=== PATIENT | male | born 1970 ===

== ENCOUNTER → 2017-12-11 | Day surgery (SDC) | payer OTHER ==
[2017-11-26 14:59] VITALS: Ht 182.9 cm; Wt 94.5 kg
--- NOTE | 2017-12-10 08:44 | History and Physical: Surg Cnt ---
History & Physical Date Dec 10, 2017. Chief Complaint chronic sinusitis, nasal obstruction History of Present Illness The patient is a 47 year old male with complaints of recurrent and chronic sinusitis, septal deviation, snoring Additional History Hepatic Disease: No Endocrine Disorder: No Kidney Disease: No Hypertension: No Heart Disease: No Bleeding Tendencies: No Infectious Diseases: No Allergies Coded Allergies: Paroxetine (Verified Allergy, Mild, rash, 11/26/17) Home Medications Scheduled Duloxetine Hcl (Cymbalta), 20 MG PO QAM Fluticasone Propionate (Nasal) (Flonase Allergy Relief), 1-2 SPRAY NA BID Lamotrigine (Lamictal), 150 MG PO QAM Sertraline (Zoloft), 1 TAB PO QAM Physical Examination Skin: warm/dry, no rash Eyes: normal inspection, EOMI, sclerae normal ENT: normal ENT inspection, pharynx normal Head: normocephalic, atraumatic Neck: supple, no adenopathy, trachea midline Respiratory/Chest: lungs clear, normal breath sounds, no respiratory distress Cardiovascular: regular rate, rhythm, no edema, no murmur Abdomen / GI: normal bowel sounds, non tender Back: normal inspection Extremities: normal inspection, normal range of motion Neurologic/Psych: no motor/sensory deficits, alert, normal reflexes, oriented x 3 Diagnosis chronic sinusitis, septal deviation, snoring Plan of Treatment septoplasty, endoscopic sinus surgery, Celon turbinates and uvula
[~2017-12-11] VITALS: Ht 182.9 cm; Wt 94.5 kg
[~2017-12-11] MED LIST: ATROPINE SULFATE 0.1 MG/ML 5ML SYR IV PRN; BACITRACIN OINT 15 GM TUBE ONE; CEFAZOLIN 2000MG IV PUSH 15 ML IV SCH; DEXAMETHASONE SOD INJ 4 MG/ML VIAL ONE; DULO-24 PO; EpHEDrine SULFATE 50MG/5ML SYR ONE; EpHEDrine SULFATE INJ 50 MG/ML AMP IV PRN; EpINEphrine INJ 1MG/ML AMP 1 MG/ML AMP ONE; FENTANYL CITRATE INJ 50 MCG/1 ML 2 ML VIAL IV PRN; FENTANYL CITRATE INJ 50 MCG/1 ML 2 ML VIAL ONE; FLUT0.15; GELATIN SPONGE 12-7MM ONE; GLYCOPYRROLATE INJ 0.2 MG/ML VIAL ONE; LACTATED RINGER'S 1000ML 1,000 ML IV SCH; LAMO100T16 PO; LIDO 2%/EPINEPHRINE 1:100000 20 ML VIAL ONE; LIDOCAINE 4% MPF SOAK 5 ML = 1 DOSE ONE; LIDOCAINE HCL 2% 2 ML VIAL (20MG/ML) ONE; MIDAZOLAM HCL 1 MG/ML 2ML VIAL ONE; NEOSTIGMINE METHYLSULFATE 5 MG/5 ML SYR ONE; ONDANSETRON INJ 2 MG/ML 2 ML VIAL IV PRN; ONDANSETRON INJ 2 MG/ML 2 ML VIAL ONE; OXYC-57 PO; PROMETHAZINE HCL INJ 6.25 MG in SODIUM CHLORIDE 0.9% 50ML 50 ML IV PRN; PROPOFOL IV EMULSION 10 MG/ML 20 ML VIAL ONE; ROCURONIUM BROMIDE 10 MG/ML 5 ML VIAL ONE; SERT-234 PO; SODIUM CHLORIDE 0.9% 1000ML 1,000 ML IV SCH; TRAMADOL HCL 50 MG TAB PO PRN
--- NOTE | 2017-12-11 10:00 | History & Physical Bridge Note ---
H&P Re-Evaluation Bridge Note: I have examined the patient, reviewed the History & Physical and in the interval since the performance of the History & Physical I have noted the following changes of clinical significance: No changes noted
--- NOTE | 2017-12-11 12:22 | Discharge Instructions ---
Discharge Instructions Date of Service Dec 11, 2017. Admission Reason for Admission: Deviated Septum, Chronic Sinusitis Discharge Discharge Diagnosis / Problem: same Discharge Goals Goal(s): Improve function Activity Recommendations Activity Limitations: resume your previous activity . Instructions / Follow-Up Instructions / Follow-Up ACTIVITY RECOMMENDATIONS: * Being up and around is good, but no strenuous activity, heavy lifting or physical exertion for one week. * Keep your head elevated 30 degrees when lying down or sleeping. * Do not blow your nose for 48 hours, sniff back instead. * Avoid hot showers. OVER THE COUNTER MEDICATIONS: * You may use Tylenol * Avoid aspirin or aspirin containing products, e.g. as they may increase bleeding. SPECIAL CARE INSTRUCTIONS: * Expect to have bloody drainage from your nose and/or down your throat for one to three days. Change drip pad as needed. * Begin irrigating your nose with saline solution today, at least six to ten times per day and sniff back to help remove old clots or crust. * You may experience nasal and facial congestion, pain and pressure, this is normal. * Please call with any significant and/or progressive pain, redness, swelling around the eyes, visual changes, fever of 101.5 degrees F, active bleeding or any problems or concerns. * If active bleeding occurs, spray the nose three times at one minute intervals with Afrin spray and call or cell phone: . If unable to reach the doctor, go to the nearest Emergency Department. Special Diet: * Avoid extremely hot fluids. FOLLOW UP VISIT: Follow-up Visit with Dr. Bowling If not already scheduled, please call to schedule. Current Hospital Diet Patient's current hospital diet: Discharge Diet Recommended Diet: Regular Diet Procedures Procedures Performed: Endoscopic Sinus Surgery with [employer] Navigation, Right and Left Frontal Sinuses, Right and Left Sphenoid Sinuses, Right and Left Total Ethmoid Sinuses, Right and Left Maxillary Sinuses, Septoplasty, Celon Turbinates and Uvula Pending Studies Studies pending at discharge: no Medical Emergencies . Who to Call and When: Medical Emergencies: If at any time you feel your situation is an emergency, please call 911 immediately. . Non-Emergent Contact Non-Emergency issues call your: Primary Care Provider . . "Provider Documentation" section prepared by Ofe Mckeon . [facility] Monitoring Program Search Results: no issues identified
--- NOTE | 2017-12-11 12:25 | [facility] Post Operative Brief Note ---
Immediate Operative Summary Operative Date Dec 11, 2017. Pre-Operative Diagnosis Chronic Sinusitis, Nasal Septal Deviation, Snoring Post-Operative Diagnosis Same Procedure(s) Performed Endoscopic Sinus Surgery with [employer] Navigation, Right and Left Frontal Sinuses, Right and Left Sphenoid Sinuses, Right and Left Total Ethmoid Sinuses, Right and Left Maxillary Sinuses, Septoplasty, Celon Turbinates and Uvula Surgeon Dr. Bowling [employer] Work[employer] Surgeon(s) None Estimated Blood Loss 60 mL Findings Consistent with Post-Op Diagnosis Specimens None Drains None Anesthesia Type General Complication(s) none Disposition Accompanied Pt To Recover: no Disposition: Recovery Room / PACU Overlapping Procedure I was present for: the critical portions of procedure. I was immediately available: during the entire case
--- NOTE | 2017-12-11 13:15 | OPERATIVE REPORT ---
DATE OF OPERATION: 12/11/2017 PREOPERATIVE DIAGNOSES: Chronic sinusitis, polyposis, septal deviation and snoring. POSTOPERATIVE DIAGNOSES: Chronic sinusitis, polyposis, septal deviation and snoring. PROCEDURES: Right and left frontal, right and left sphenoid, right and left total ethmoid and right and left maxillary sinus antrostomies with endoscopic septoplasty with open septoplasty and radiofrequency volume reduction of the uvula and soft palate and also radiofrequency volume reduction of the inferior turbinates. SURGEON: Ofe Bowling M.D. ANESTHESIA: General endotracheal. COMPLICATIONS: None. BLOOD LOSS: 60 mL HISTORY OF PRESENT ILLNESS: This 47-year-old gentleman presented with chronic nasal obstruction, recurrent chronic sinusitis, septal deviation to the left. He also has significant snoring and his uvula irritates his throat because it continues to swell up and lengthen. DESCRIPTION OF PROCEDURE: The patient brought to the operating room and placed in supine position. General endotracheal anesthesia was induced, prepped, and draped in usual sterile manner. Nose decongested using cottonoids with a topical solution of 4 mL of 4% Xylocaine with 1 mL of epinephrine. Injection of 2% Xylocaine with 1:100,000 strength epinephrine was also used. [place] Paper device was calibrated and used as guidance; however, the visualization was poor due to the inferior quality of the CT scan. The nose was injected with 2% Xylocaine with 1:100,000 strength epinephrine. The right sphenoid was cannulated with a guidewire and dilated using the 6 mm balloon finding polyps blocking the meatus. Left sphenoid was also dilated using 6 mm balloon. At this point, the right maxillary sinus cannulated the guidewire and dilated using the 6 mm balloon as was the left maxillary sinus. The right nasofrontal duct was cannulated with guidewire, dilated using the 6 mm balloon. The balloon was deflated and removed, but leaving the guidewire in place as a marker for frontal sinusotomy. Frontal sinusotomy was performed by using the shaver, opening up the anterior wall and then the posterior wall of the agger nasi cell. At this point, total ethmoidectomy was performed opening up the bullae ethmoidalis going through the ground lamella into the posterior ethmoid air cells finding polyps filling the anterior and posterior ethmoid air cells, delineating posterior most ethmoid air cell, delineating the skull base superiorly and lamina papyracea laterally following these structures anteriorly exonerating all the posterior and all the anterior ethmoid air cells up to the previously dilated nasofrontal duct. Maxillary sinus was opened by removing the posterior border at the anterior wall of the bullae ethmoidalis. Sphenoid was opened by removing polyps at the anterior face and also polyps along the inferior border of the superior turbinate. The left frontal sinusotomy, sphenoidotomy, total ethmoidectomy, and maxillary sinus antrostomy was performed in a similar manner. Contours stents were placed in the nasofrontal duct and Propel stents placed in the middle meatus area. The left ivon-transition incision was made and mucoperichondrium was elevated off the left-sided septum. Superior and inferior tunnels were made and then bilateral posterior tunnels were made to isolate the bony cartilaginous spur projecting to the left. The cartilaginous spur was resected using the 15 blade by removing a small strip of cartilage inferiorly and the deviated portion perpendicular plate of the ethmoid was isolated via bilateral posterior tunnels and then removed using the Dimas rongeurs and the Melody forceps. This returned the septum to the midline. Septum was closed using continuous mattress suture of 4-0 plain gut. Anterior nasal packing of Gelfoam was placed. The inferior turbinates were treated with radiofrequency volume reduction using the Celon machine with the setting at 18 creating three lesions in each inferior turbinate. At this point, attention was turned to the palate, which was treated with radiofrequency volume reduction using the Celon machine creating four midline lesions in the uvula and the soft palate and then creating two lateral lesions, a total of eight lesions on the soft palate and uvula. The patient tolerated the procedure well and was taken to recovery area in satisfactory condition. I attest to the content of the Intraoperative Record and any orders documented therein. Any exception s are noted below.
[2017-12-11 13:24] VITALS: TEMP 36.6
--- NOTE | 2017-12-11 13:27 | Anesthesia Progress Nt - [facility] ---
Anesthesia Post Op Note Date & Time Dec 11, 2017 at 13:26 Vital Signs Pain Intensity: 4 Vital Signs Past 12 Hours Date Time Temp Pulse Resp B/P (MAP) Pulse Ox O2 Delivery O2 Flow Rate FiO2 12/11/17 13:07 59 10 95 12/11/17 13:07 60 10 12/11/17 13:07 36.8 61 12 148/90 95 Room Air 12/11/17 13:06 148/90 12/11/17 13:02 59 11 95 12/11/17 13:02 59 11 12/11/17 13:01 153/99 12/11/17 12:57 65 16 95 12/11/17 12:57 65 16 12/11/17 12:56 156/104 12/11/17 12:52 64 9 12/11/17 12:52 64 9 97 12/11/17 12:51 164/99 12/11/17 12:49 65 10 12/11/17 12:49 65 10 95 12/11/17 12:46 175/81 12/11/17 12:44 64 9 98 12/11/17 12:44 64 9 12/11/17 12:41 163/103 12/11/17 12:39 74 13 98 12/11/17 12:39 74 13 12/11/17 12:36 171/102 12/11/17 12:34 72 11 12/11/17 12:34 73 11 98 12/11/17 12:31 162/95 12/11/17 12:29 79 10 12/11/17 12:29 78 10 100 12/11/17 12:26 142/95 12/11/17 12:24 86 12/11/17 12:24 86 100 12/11/17 12:20 137/73 12/11/17 12:19 36.8 104 16 137/73 100 Humidified Oxygen 6 Diffusion Mask 12/11/17 08:20 36.5 63 16 138/94 (109) 100 Room Air Notes Mental Status: alert / awake / arousable, participated in evaluation Pt Amnestic to Procedure: Yes Nausea / Vomiting: adequately controlled Pain: adequately controlled Airway Patency, RR, SpO2: stable & adequate BP & HR: stable & adequate Hydration State: stable & adequate Anesthetic Complications: no major complications apparent
[2017-12-11 13:46] VITALS: BP 135/83; PULSE 68; O2SAT 96
== END | disposition home or self-care (01) ==
LOC: X.SURG 08:10
PROVIDERS: ATTEND Otolaryngology
DX: J32.9 Chronic sinusitis, unspecified (principal); J34.2 Deviated nasal septum; G47.33 Obstructive sleep apnea (adult) (pediatric); F32.9 Major depressive disorder, single episode, unspecified; F41.9 Anxiety disorder, unspecified; Z87.891 Personal history of nicotine dependence; Z88.8 Allergy status to other drugs, medicaments and biological substances